=== PATIENT | female | born 1950 | race Caucasian/White ===

== ENCOUNTER 2018-10-17 20:59 | Emergency (ER) | payer MEDICARE, BC ==
[~2018-10-17] VITALS: Ht 162.6 cm; Wt 55.0 kg
[~2018-10-17 20:59] MED LIST: ALEN70TA60 PO; COU5T PO; LISI-642 PO; SOTA80TA73 PO
--- NOTE | 2018-10-17 21:44 | NUR ---
DR MARSHALL AT BEDSIDE WITH PT
--- NOTE | 2018-10-17 22:34 | NUR ---
DR MARSHALL AT BEDSIDE TO PLACE SUTURES
[2018-10-17 22:40] VITALS: BP 145/72
== END 2018-10-17 22:42 | disposition home or self-care (01) ==
LOC: ER 20:59
DX: S01.112A Laceration without foreign body of left eyelid and periocular area, initial encounter (principal); M25.572 Pain in left ankle and joints of left foot; I48.91 Unspecified atrial fibrillation; M19.90 Unspecified osteoarthritis, unspecified site; Z95.0 Presence of cardiac pacemaker; Z79.01 Long term (current) use of anticoagulants; W10.9XXA Fall (on) (from) unspecified stairs and steps, initial encounter; Y93.89 Activity, other specified; Y92.89 Other specified places as the place of occurrence of the external cause; Y99.8 Other external cause status
CPT/HCPCS: 12011; 70450; 72125; 73610; 99284